=== PATIENT | female | born 1960 | race Caucasian/White ===

== ENCOUNTER → 2017-05-11 | Outpatient (CLI) | payer OTHER | LOC: BMCIMAGING 15:23 | PROVIDERS: ATTEND Obstetrics & Gynecology | DX: Z12.31 Encounter for screening mammogram for malignant neoplasm of breast (principal) | CPT/HCPCS: G0202 ==

== ENCOUNTER 2017-09-10 20:10 | Observation (INO) | payer OTHER ==
--- NOTE | 2017-09-10 21:44 | EDPHY ---
H & P Time Seen by Provider: 09/10/17 21:28 HPI/ROS: CHIEF COMPLAINT: Fever HISTORY OF PRESENT ILLNESS: Patient is a 49-year-old female who presents emergency department with fever x3 days. Patient states that 13 days ago while she was in [place] when she developed a chest cold and cough. It moved upward into a head cold. She developed muscle aches and chills. She thought her cough was getting better but it recently worsened. It is nonproductive. On Monday she had a fever to 103.5. On Monday fever was 101. She denies chest pain. No abdominal pain. No nausea vomiting. No diarrhea. She denies dysuria or frequency. Her recently had a significant chest cold and was treated with azithromycin for"pre pneumonia." REVIEW OF SYSTEMS: My complete review of systems is negative except as mentioned in the HPI. Past Medical/Surgical History: Hypothyroidism, asthma, collapsed lung Past surgical history: Left leg surgery Social history: The patient does not smoke. She is Smoking Status: Never smoked Physical Exam: 37.6, 111/79, 115, 20, 88% on room air GENERAL: No acute distress, alert. HEENT: Eyes normal to inspection, normal pharynx, no signs of dehydration. NECK: No thyromegaly, no lymphadenopathy, supple. RESPIRATORY: Coarse breath sounds and rales bilaterally, rhonchi or wheezing. CVS: Tachycardia with regular rhythm, no rubs, murmurs, or gallops. ABDOMEN: Soft, nontender, nondistended, no organomegaly. BACK: Normal to inspection, no CVA tenderness. SKIN: Normal color, no rash, warm, dry. No pallor. EXTREMITIES: No pedal edema, no calf tenderness, no Homans sign or cords, no joint swelling. NEURO/PSYCH: Alert and oriented x3, normal mood and affect, normal motor sensory exam. No obvious cranial nerve deficit. Constitutional: Initial Vital Signs Temperature (C) 37.6 C 09/10/17 20:17 Heart Rate 115 H 09/10/17 20:17 Respiratory Rate 20 09/10/17 20:17 Blood Pressure 111/79 09/10/17 20:17 O2 Sat (%) 88 L 09/10/17 20:17 O2 Delivery Mode Room Air Allergies/Adverse Reactions: Sulfa (Sulfonamide Antibiotics) Allergy (Intermediate, Verified 09/10/17 20:17) Rash acetaminophen [From Percocet] Allergy (Mild, Verified 09/10/17 20:17) Vomiting oxycodone HCl [From Percocet] Allergy (Mild, Verified 09/10/17 20:17) Vomiting Penicillins Allergy (Verified 09/10/17 20:17) Home Medications: Medication Instructions Recorded Albuterol Hfa Anes Only [Proair 1 puffs IH DAILY PRN 02/09/14 Hfa Icu (*)] Porcine Thyroid 150 mg PO DAILY06 02/09/14 Medical Decision Making - Diagnostics Imaging Results: Imaging Impressions Chest X-Ray 09/10/17 21:44 Impression: Mild underlying bronchitis with probable early pneumonia posteriorly in either the right or left lower lobe. ED Course/Re-evaluation: In the emergency department I discussed possible etiologies with the patient. I answered all her questions. An IV was placed. Laboratory studies were obtained. Cultures were obtained. Chest x-ray was ordered. Patient's white count is elevated at 12. Chemistry panel is unremarkable. Chest x-ray: Please refer the dictated report by Dr. Llamas. The patient has a posterior infiltrate. It is unclear exactly which side. EKG shows normal sinus rhythm, normal rate, normal axis, normal intervals. There are no ST or T-wave abnormalities. EKG is normal as interpreted by me. I discussed the results with the patient. I answered all her questions. Patient was given Levaquin 750 mg IV. The patient had an oxygen saturation of 86% on room air. I discussed the plan for admission with the patient. I discussed the case with Dr. Hernandez who will admit the patient. Differential Diagnosis: My differential includes but is not limited to pneumonia, bronchitis, empyema, influenza, bacteremia, sepsis - Data Points Laboratory Results: Laboratory Results 09/10/17 20:55 09/10/17 20:55 09/10/17 09/10/17 09/10/17 21:50 20:55 20:55 WBC RBC Hgb Hct MCV MCH MCHC RDW Plt Count MPV Neut % (Auto) Lymph % (Auto) [place] % (Auto) Eos % (Auto) Baso % (Auto) Nucleat RBC Rel Count Absolute Neuts (auto) Absolute Lymphs (auto) Absolute Monos (auto) Absolute Eos (auto) Absolute Basos (auto) Absolute Nucleated RBC Immature Gran % Immature Gran # VBG Lactic Acid 0.9 mmol/L mmol/L (0.7-2.1) Sodium 139 mEq/L mEq/L (135-145) Potassium 4.1 mEq/L mEq/L (3.5-5.2) Chloride 105 mEq/L mEq/L (97-110) Carbon Dioxide 23 mEq/l mEq/l (22-31) Anion Gap 11 mEq/L mEq/L (8-16) BUN 10 mg/dL mg/dL (7-23) Creatinine 0.7 mg/dL mg/dL (0.6-1.0) Estimated GFR > 60 Glucose 147 mg/dL H mg/dL (70-100) Calcium 9.8 mg/dL mg/dL (8.5-10.4) NT-Pro-B Natriuret Pep 58 pg/mL pg/mL (0-125) Procalcitonin Pending Urine Color Urine Appearance Urine pH Ur Specific [place] Urine Protein Urine Ketones Urine Blood Urine Nitrate Urine Bilirubin Urine Urobilinogen Ur Leukocyte Esterase Urine Glucose 09/10/17 09/10/17 20:55 20:50 WBC 12.04 10^3/uL H 10^3/uL (3.80-9.50) RBC 4.26 10^6/uL 10^6/uL (4.18-5.33) Hgb 14.1 g/dL g/dL (12.6-16.3) Hct 40.9 % % (38.0-47.0) MCV 96.0 fL fL (81.5-99.8) MCH 33.1 pg pg (27.9-34.1) MCHC 34.5 g/dL g/dL (32.4-36.7) RDW 12.8 % % (11.5-15.2) Plt Count 313 10^3/uL 10^3/uL (150-400) MPV 10.8 fL fL (8.7-11.7) Neut % (Auto) 82.0 % H % (39.3-74.2) Lymph % (Auto) 11.6 % L % (15.0-45.0) [place] % (Auto) 5.1 % % (4.5-13.0) Eos % (Auto) 0.7 % % (0.6-7.6) Baso % (Auto) 0.2 % L % (0.3-1.7) Nucleat RBC Rel Count 0.0 % % (0.0-0.2) Absolute Neuts (auto) 9.87 10^3/uL H 10^3/uL (1.70-6.50) Absolute Lymphs (auto) 1.40 10^3/uL 10^3/uL (1.00-3.00) Absolute Monos (auto) 0.61 10^3/uL 10^3/uL (0.30-0.80) Absolute Eos (auto) 0.08 10^3/uL 10^3/uL (0.03-0.40) Absolute Basos (auto) 0.03 10^3/uL 10^3/uL (0.02-0.10) Absolute Nucleated RBC 0.00 10^3/uL 10^3/uL (0-0.01) Immature Gran % 0.4 % % (0.0-1.1) Immature Gran # 0.05 10^3/uL 10^3/uL (0.00-0.10) VBG Lactic Acid Sodium Potassium Chloride Carbon Dioxide Anion Gap BUN Creatinine Estimated GFR Glucose Calcium NT-Pro-B Natriuret Pep Procalcitonin Urine Color YELLOW Urine Appearance HAZY Urine pH 5.0 (5.0-7.5) Ur Specific [place] 1.010 (1.002-1.030) Urine Protein NEGATIVE (NEGATIVE) Urine Ketones NEGATIVE (NEGATIVE) Urine Blood NEGATIVE (NEGATIVE) Urine Nitrate NEGATIVE (NEGATIVE) Urine Bilirubin NEGATIVE (NEGATIVE) Urine Urobilinogen NEGATIVE EU EU (0.2-1.0) Ur Leukocyte Esterase NEGATIVE (NEGATIVE) Urine Glucose NEGATIVE (NEGATIVE) Medications Given: Levofloxacin/Dextrose (Levaquin 750 Mg (Premix)) 150 mls @ 100 mls/hr IV EDNOW ONE PRN Reason: Protocol Stop: 09/10/17 23:49 Last Admin: 09/10/17 22:36 Dose: 150 mls Departure - Departure Disposition: [facility] Clinical Impression: Pneumonia Qualifiers: Pneumonia type: due to unspecified organism Laterality: unspecified laterality Lung location: lower lobe of lung Qualified Code(s): J18.1 - Lobar pneumonia, unspecified organism Condition: Good Referrals: NONE *PRIMARY CARE P,. [Primary Care Provider] - As per Instructions
[2017-09-10 21:53] LABS: PLATELET COUNT 313 10^3/uL (150-400)
--- NOTE | 2017-09-10 22:13 | CPEKG ---
Heart Rate: 85 RR Interval: 706 P-R Interval: 152 QRSD Interval: 92 QT Interval: 396 QTC Interval: 471 P [place]: 82 QRS [place]: 65 T Wave [place]: 34 EKG Severity - BORDERLINE ECG - EKG Impression: SINUS RHYTHM EKG Impression: PROBABLE LEFT ATRIAL ABNORMALITY Electronically Signed By: Marlee Fowler 10-Sep-2017 22:49:43
[2017-09-10] MEDS ORDERED: ACETAMINOPHEN 325 MG TAB PO PRN (22:37)
[2017-09-10] MEDS ORDERED: ALBUTEROL 3 ML DEYVIAL IH PRN (22:37)
[2017-09-10] MEDS ORDERED: ONDANSETRON DISINTEGRATING 4 MG TAB PO PRN (22:37)
[2017-09-10] MEDS ORDERED: ONDANSETRON 4 MG/2 ML VIAL IVP PRN (22:37)
--- NOTE | 2017-09-10 23:55 | PDGENHP ---
History and Physical - Chief Complaint Shortness of breath - History of Present Illness 57 yo F w/ minimal PMHx presents with shortness of breath, fever, and cough. Patient states he first felt ill about 2 weeks ago during a trip to [place]. At that time she experienced congestion and cough. She felt somewhat better for a few days but then over the last 2 days she developed high fevers (103) and worsening cough. As a result she came to the ED where she was found to be mildly hypoxic and have a posterior infiltrate on CXR. History Information - Allergies/Home Medication List Allergies/Adverse Reactions: Sulfa (Sulfonamide Antibiotics) Allergy (Intermediate, Verified 09/10/17 20:17) Rash acetaminophen [From Percocet] Allergy (Mild, Verified 09/10/17 20:17) Vomiting oxycodone HCl [From Percocet] Allergy (Mild, Verified 09/10/17 20:17) Vomiting Penicillins Allergy (Verified 09/10/17 20:17) Home Medications: Albuterol Hfa Anes Only [Proair Hfa Icu (*)] 1 puffs IH DAILY PRN 02/09/14 [ Last Taken 02/09/14] Porcine Thyroid 150 mg PO DAILY06 02/09/14 [Last Taken 02/09/14 04:30] I have personally reviewed and updated: family history, medical history - Past Medical History Additional medical history: Bullous emphysema - Surgical History Additional surgical history: Surgical removal of bullae - Family History Additional family history: Denies family hx of lung disease - Social History Smoking Status: Never smoked Review of Systems Review of Systems: ROS: 10pt was reviewed & negative except for what was stated in HPI & below Physical Exam Physical Exam: Temp Pulse Resp BP Pulse Ox 37.6 C 84 16 125/86 H 96 09/10/17 20:17 09/10/17 23:16 09/10/17 23:16 09/10/17 23:16 09/10/17 23:16 Constitutional: no apparent distress, not in pain Eyes: PERRL, EOMI Ears, Nose, Mouth, Throat: moist mucous membranes, no oral mucosal ulcers Cardiovascular: regular rate and rhythym, no murmur, rub, or gallop Respiratory: no respiratory distress, clear to auscultation, reduced air movement Gastrointestinal: normoactive bowel sounds, soft, non-tender abdomen Skin: warm, normal color Musculoskeletal: full muscle strength, no muscle tenderness Neurologic: AAOx3, CN II-XII Intact Psychiatric: interacting appropriately, not anxious Lab Data & Imaging Review 09/10/17 20:55 09/10/17 20:55 WBC 12.04 10^3/uL (3.80-9.50) H 09/10/17 20:55 RBC 4.26 10^6/uL (4.18-5.33) 09/10/17 20:55 Hgb 14.1 g/dL (12.6-16.3) 09/10/17 20:55 Hct 40.9 % (38.0-47.0) 09/10/17 20:55 MCV 96.0 fL (81.5-99.8) 09/10/17 20:55 MCH 33.1 pg (27.9-34.1) 09/10/17 20:55 MCHC 34.5 g/dL (32.4-36.7) 09/10/17 20:55 RDW 12.8 % (11.5-15.2) 09/10/17 20:55 Plt Count 313 10^3/uL (150-400) 09/10/17 20:55 MPV 10.8 fL (8.7-11.7) 09/10/17 20:55 Neut % (Auto) 82.0 % (39.3-74.2) H 09/10/17 20:55 Lymph % (Auto) 11.6 % (15.0-45.0) L 09/10/17 20:55 [place] % (Auto) 5.1 % (4.5-13.0) 09/10/17 20:55 Eos % (Auto) 0.7 % (0.6-7.6) 09/10/17 20:55 Baso % (Auto) 0.2 % (0.3-1.7) L 09/10/17 20:55 Nucleat RBC Rel Count 0.0 % (0.0-0.2) 09/10/17 20:55 Absolute Neuts (auto) 9.87 10^3/uL (1.70-6.50) H 09/10/17 20:55 Absolute Lymphs (auto) 1.40 10^3/uL (1.00-3.00) 09/10/17 20:55 Absolute Monos (auto) 0.61 10^3/uL (0.30-0.80) 09/10/17 20:55 Absolute Eos (auto) 0.08 10^3/uL (0.03-0.40) 09/10/17 20:55 Absolute Basos (auto) 0.03 10^3/uL (0.02-0.10) 09/10/17 20:55 Absolute Nucleated RBC 0.00 10^3/uL (0-0.01) 09/10/17 20:55 Immature Gran % 0.4 % (0.0-1.1) 09/10/17 20:55 Immature Gran # 0.05 10^3/uL (0.00-0.10) 09/10/17 20:55 VBG Lactic Acid 0.9 mmol/L (0.7-2.1) 09/10/17 21:50 Sodium 139 mEq/L (135-145) 09/10/17 20:55 Potassium 4.1 mEq/L (3.5-5.2) 09/10/17 20:55 Chloride 105 mEq/L (97-110) 09/10/17 20:55 Carbon Dioxide 23 mEq/l (22-31) 09/10/17 20:55 Anion Gap 11 mEq/L (8-16) 09/10/17 20:55 BUN 10 mg/dL (7-23) 09/10/17 20:55 Creatinine 0.7 mg/dL (0.6-1.0) 09/10/17 20:55 Estimated GFR > 60 09/10/17 20:55 Glucose 147 mg/dL (70-100) H 09/10/17 20:55 Calcium 9.8 mg/dL (8.5-10.4) 09/10/17 20:55 NT-Pro-B Natriuret Pep 58 pg/mL (0-125) 09/10/17 20:55 Procalcitonin 0.14 ng/mL (0.02-0.10) H 09/10/17 20:55 Urine Color YELLOW 09/10/17 20:50 Urine Appearance HAZY 09/10/17 20:50 Urine pH 5.0 (5.0-7.5) 09/10/17 20:50 Ur Specific [place] 1.010 (1.002-1.030) 09/10/17 20:50 Urine Protein NEGATIVE (NEGATIVE) 09/10/17 20:50 Urine Ketones NEGATIVE (NEGATIVE) 09/10/17 20:50 Urine Blood NEGATIVE (NEGATIVE) 09/10/17 20:50 Urine Nitrate NEGATIVE (NEGATIVE) 09/10/17 20:50 Urine Bilirubin NEGATIVE (NEGATIVE) 09/10/17 20:50 Urine Urobilinogen NEGATIVE EU (0.2-1.0) 09/10/17 20:50 Ur Leukocyte Esterase NEGATIVE (NEGATIVE) 09/10/17 20:50 Urine Glucose NEGATIVE (NEGATIVE) 09/10/17 20:50 Imaging Review: Imaging Impressions Chest X-Ray 09/10/17 21:44 Impression: Mild underlying bronchitis with probable early pneumonia posteriorly in either the right or left lower lobe. Visualized and Interpreted EKG results: Yes EKG Interpretation: Positive for: normal sinsus rhythm Assessment & Plan Assessment: 57 yo F p/w pneumonia. Plan: 1. Community acquired pneumonia - Likely a post-viral pneumonia based on history. CXR reveals a posterior infiltrate, WBC of 12,000. Patient mildly hypoxic in the ED. - Levofloxacin for possible Staph coverage - Blood cultures, respiratory PCR, procalcitonin - Albuterol PRN 2. AHRF - Mild, 2/2 above. Requiring only 2 L/min currently. - Incentive spirometry 3. 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 She uses albuterol PRN prior to exercise only. Diet - Regular Code - Full Ppx - LMWH Dispo - Admit under observation status
[2017-09-11] MEDS ORDERED: ALBUTEROL 60 PUFFS/8 GM MDI IH PRN ×2 (01:15→09:56)
[2017-09-11] MEDS ORDERED: IBUPROFEN 200 MG TAB PO PRN (05:06)
[2017-09-11 05:21] LABS: PLATELET COUNT 250 10^3/uL (150-400)
[2017-09-11] MEDS ORDERED: ENOXAPARIN 40 MG/0.4 ML SYR SC SCH (09:00)
--- NOTE | 2017-09-11 09:47 | HOSPPROG ---
Hospitalist Progress Note Assessment/Plan: 57 yo female who had recent travels. She came to the emergency room for feeling poorly and worsening shortness of breath. Today is my 1st encounter with the patient chart reviewed. *. Community acquired pneumonia - Likely a post-viral pneumonia based on history. - CXR reveals a posterior infiltrate, WBC of 12,000. 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 - She uses albuterol PRN prior to exercise only/exercise induced asthma *Plan: dc home with close f/u after lunch if she continues to feel well Subjective: Elizabeth is feeling much better. Objective: Vital Signs Temp Pulse Resp BP Pulse Ox 37.1 C 79 16 123/75 H 92 09/11/17 07:43 09/11/17 07:43 09/11/17 07:43 09/11/17 07:43 09/11/17 07:43 Laboratory Results 09/11/17 04:53 09/11/17 04:53 09/10/17 09/11/17 09/12/17 05:59 05:59 05:59 Intake Total 350 Balance 350 - Physical Exam Constitutional: no apparent distress, appears nourished, not in pain Eyes: PERRL Ears, Nose, Mouth, Throat: hearing normal Cardiovascular: regular rate and rhythym Respiratory: no respiratory distress, expiratory wheeze Skin: warm, normal color Musculoskeletal: full muscle strength Neurologic: AAOx3 Psychiatric: interacting appropriately ICD10 Worksheet Patient Problems: Problems Problem Status Onset Pneumonia Acute Intertrochanteric fracture of left femur Acute
[2017-09-11] MEDS ORDERED: ALBUTEROL HFA ANES ONLY 200 PUFFS/8.5 GM MDI IH PRN (09:54)
[2017-09-11] MEDS ORDERED: predniSONE 20 MG TAB PO SCH (10:30)
--- NOTE | 2017-09-11 10:50 | ASMTLACE ---
LACE Length of stay for Answers: 1 day current admission Acuity / Level of Answers: No Care: Did the patient have an inpatient admission? Comorbidities - select Answers: Chronic pulmonary disease all that apply # of Emergency department Answers: 1-2 visits in the last 6 months Score: 4 Date Signed: 09/11/2017 10:49 AM Electronically Signed By:Felicity Esparza RN
--- NOTE | 2017-09-11 10:51 | ASMTCMCOM ---
CM Note CM Note Notes: Reviewed chart. Pt admitted w/PNA. She lives at home w/. Anticipate dc home w/, no CM needs. Date Signed: 09/11/2017 10:51 AM Electronically Signed By:Felicity Esparza RN
[2017-09-11] MEDS ORDERED: [UNRECOGNIZED DRUG - OTHER] PO SCH (11:00)
--- NOTE | 2017-09-11 11:51 | GDS ---
[f rep st] DISCHARGE SUMMARY DISCHARGE DIAGNOSES: 1. Community-acquired pneumonia, likely postviral pneumonia. 2. Acute hypoxemic respiratory failure. 3. Bullous emphysema. HISTORY OF PRESENT ILLNESS: Briefly, Elizabeth Martins is a 57-year-old female who presented to the emergency room with shortness of breath, fever and cough. She felt ill about 2 weeks ago during her trip to [place]. She experienced congestion and cough. She also developed a high fever. She came to the emergency room and was found to be mildly hypoxic, and to have a posterior field infiltrate on the chest x-ray. She was treated with Levaquin, feeling markedly better. Her respiratory panel noted that she had the human metapneumovirus, as well as a human rhinovirus, enterovirus. She has been started on steroids. She will follow up with her primary care provider to get further evaluation. HOSPITAL COURSE: 1. Community-acquired pneumonia. I suspect this is most likely postviral based on her history. Also, she is noted to have the metapneumovirus and human rhinovirus, enterovirus. Her procalcitonin is low at 0.14 likely indicating a viral condition. Blood cultures are pending. She has been started on Azithromycin. She was concerned about tendinopathy with use of Levaquin. Recommendation is for her to get a repeat chest x-ray in 6 weeks. 2. Acute hypoxemic respiratory failure, much improved. Home oxygen has been ordered. 3. Bullous emphysema. She says she has had surgery for this, but does not know the cause. She describes it as exercise-induced asthma the resolves with albuterol p.r.n. DISCHARGE CONDITION: Stable. Blood pressure is 123/75, heart rate is 79, respiratory rate is 16, O2 saturation on 2 L 92%; Temperature is 37.1 Celsius. MEDICATIONS AT DISCHARGE: Please see the EMR. DISCHARGE INSTRUCTIONS: 1. To take prednisone as prescribed, and take with food in the morning. 2. Take the Azithromycin as prescribed. 3. If she develops worsening fever or chills, to return to the ER. 4. Note that her blood cultures are pending. She needs to have her primary care doctor follow up with this to assure stability. /[id number]/MODL MTDD
[2017-09-11 12:12] VITALS: BP 119/62
--- NOTE | 2017-09-11 15:59 | PDHOMEO2F ---
Home Oxygen Face to Face Home Orders: I certify that a physician or a nurse practitioner or physician's career services assistant has had a [id number] encounter with this patient on the date of this order due to the diagnosis listed, which relates to the primary reason the patient requires home oxygen. Alternative treatments have been tried, or considered, and deemed ineffective. It is anticipated that supplemental oxygen will result in improvement with treatment. Home oxygen qualifying diagnosis: pneumonia SpO2 on room air (%): 86 Frequency of home oxygen needed: continuous Home oxygen liters per minute: 2 liters Home oxygen delivery device: nasal cannula Concentrator: No E-tanks for mobility and back up: Yes If ordering portable O2, is the patient mobile in the home?: Yes I certify that, based on these findings, the home oxygen is medically necessary for this patient for the following length of time. Length of time home oxygen needed: 99 years
[2017-09-12] MEDS ORDERED: Herbals/Supplements -Info Only PO SCH (09:00)
[2017-09-12] MEDS ORDERED: CALCIUM CARBONATE 500 MG TAB PO SCH (09:00)
[2017-09-12] MEDS ORDERED: CHOLECALCIFEROL VIT D3 1,000 UNITS TAB PO SCH (09:00)
[2017-09-12] MEDS ORDERED: [UNRECOGNIZED DRUG - OTHER] PO SCH (09:00)
[2017-09-12] MEDS ORDERED: [UNRECOGNIZED DRUG - OTHER] TP SCH (09:00)
[2017-09-12] MEDS ORDERED: ASCORBIC ACID 500 MG TAB PO SCH (09:00)
[2017-09-12] MEDS ORDERED: OMEGA-3 FATTY ACIDS 1,000 MG CAP PO SCH (09:00)
[2017-09-12] MEDS ORDERED: [UNRECOGNIZED DRUG - OTHER] TP SCH (09:00)
== END 2017-09-11 18:09 | disposition home or self-care (01) ==
LOC: F3N 23:30
PROVIDERS: ADMIT Student in an Organized Health Care Education/Training Program; ATTEND Student in an Organized Health Care Education/Training Program
DX: J18.9 Pneumonia, unspecified organism (principal); J96.01 Acute respiratory failure with hypoxia; J43.9 Emphysema, unspecified; E03.9 Hypothyroidism, unspecified; Z79.51 Long term (current) use of inhaled steroids
CPT/HCPCS: 71046; 93005; 96374; 99285; G0378; J1650; J1956; J7512; J7613

== ENCOUNTER → 2018-08-08 | Outpatient (CLI) | payer OTHER | LOC: BMCIMAGING 13:50 | PROVIDERS: ATTEND Obstetrics & Gynecology | DX: Z12.31 Encounter for screening mammogram for malignant neoplasm of breast (principal); Z13.820 Encounter for screening for osteoporosis; M81.0 Age-related osteoporosis without current pathological fracture ==

== ENCOUNTER → 2018-10-31 | Outpatient (CLI) | payer OTHER | LOC: FIMAGING 13:04 ==